=== PATIENT | male | born 1960 | race Caucasian/White ===

== ENCOUNTER 2019-01-01 10:56 | Emergency (ER) | payer BC ==
[~2019-01-01] VITALS: Ht 180.3 cm; Wt 99.8 kg
[2019-01-01] MEDS ORDERED: NEOMYCIN/POLYMYX/BACITR OINT 0.9 GM PKT TOP ONE (11:15)
[2019-01-01] MEDS ORDERED: DIPHTH/TETANUS/ACEL. PERTUSSIS 0.5 ML SYR IM ONE (11:15)
[2019-01-01] MEDS ORDERED: LIDOCAINE HCL 1% LOCAL INJ 20 ML VIAL INJ NR (11:15)
[2019-01-01] MEDS ORDERED: HYDROCODONE/APAP 5MG-325MG TAB PO NR (11:15)
--- NOTE | 2019-01-01 12:40 | Diagnostic Imaging Report ---
EXAM: Cervical spine radiographs-6 views INDICATION: Status post fall. COMPARISON: None FINDINGS: C1-C6 are visualized on lateral view. Subsequently swimmer's view was obtained with visualization of C7. BONES: The alignment is within normal limits. No acute displaced fractures. Vertebral body heights are preserved. DISCS: Mild degenerative disc changes, most pronounced at C5-C6 and C6-C7. Mild bony neural foraminal stenosis at C6-C7. JOINTS: Mild facet degenerative changes. SOFT TISSUES: Unremarkable IMPRESSION: No acute radiographic abnormality. If there is clinical concern for fracture, CT would be more sensitive for evaluation. Signed by: Dr. Teri Martinez MD on 01/01/2019 12:37 PM
== END 2019-01-01 13:42 | disposition home or self-care (01) ==
LOC: ER 10:56
DX: S01.81XA Laceration without foreign body of other part of head, initial encounter (principal); S16.1XXA Strain of muscle, fascia and tendon at neck level, initial encounter; S80.811A Abrasion, right lower leg, initial encounter; S80.212A Abrasion, left knee, initial encounter; W01.198A Fall on same level from slipping, tripping and stumbling with subsequent striking against other object, initial encounter; Y92.007 Garden or yard of unspecified non-institutional (private) residence as the place of occurrence of the external cause
CPT/HCPCS: 12013; 72050; 93005; 99284; J2001

== ENCOUNTER 2019-05-25 02:56 | Observation (INO) | payer BC ==
[~2019-05-25] VITALS: Ht 180.3 cm; Wt 109.8 kg
--- OUTSIDE RECORDS SUMMARY | 2019-05-25 02:58 | XMS REPORT ---
Author Author [facility] Address Unknown Phone Unavailable Care Team Providers Care Lighter Name Role Phone Keenan DIXON Unavailable Unavailable Problems This patient has no known problems. Allergies, Adverse Reactions, Alerts This patient has no known allergies or adverse reactions. Medications This patient has no known medications. Results Test Description Test Time Test Comments Text Results Atomic Results Result Comments CERVICAL SPINE 4 OR 5 VIEWS 2019-01-01 12:30:00 [place] [id number] Patient Name: LENCHO JUNE MR #: [id number] : 1960 Age/Sex: 58/M Req #: [id number] Adm Physician: Ordered by: ZOIE CARRILLO NP Report #: [id number] Location: ER Room/Bed: Procedure: [id number] DX/CERVICAL SPINE 4 OR 5 VIEWS Exam Date: 01/01/19 Exam Time: 1205 REPORT STATUS: Signed EXAM: Cervical spine radiographs-6 views IN DICATION: Status post fall. COMPARISON: None FINDINGS: C1-C6 are visualized on lateral view. Subsequently swimmer's view was obtained with visualization of C7. BONES: The alignment is within normal limits. No acute displaced fractures. Vertebral body heights are preserved. DISCS: Mild degenerative disc changes, most pronounced at C5-C6 and C6-C7. Mild bony neural foraminal stenosis at C6-C7. JOINTS: Mild facet degenerative changes. SOFT TISSUES: Unremarkable IMPRESSION: No acute radiographic abnormality. If there is clinical concern for fracture, CT would be more sensitive for evaluation. Signed by: Dr. Valdemar Ford MD on 01/01/2019 12:37 PM Dictated By: VALDEMAR FORD MD [id number] Transcribed By: JAMI on 01/01/19 1237 COPY TO: ZOIE CARRILLO NP
[2019-05-25] MEDS ORDERED: ONDANSETRON HCL INJ 2MG/ML 2ML 2 MG/ML VIAL IV STA ×2 (03:05→05:53)
[2019-05-25] MEDS ORDERED: SODIUM CHLORIDE 0.9% 1000ML 1,000 ML ONE (03:11)
[2019-05-25 03:14] LABS: BASOPHILS # (AUTO) 0.1 (0.0-0.1); BASOPHILS % 0.4 % (0.0-1.0); EOSINOPHILS # (AUTO) 0.1 (0.0-0.4); EOSINOPHILS % 0.3 % (0.0-6.0); HEMATOCRIT 54.1 % (38.2-49.6); HEMOGLOBIN 18.2 g/dL (14.0-18.0); LYMPHOCYTES # (AUTO) 1.3 (1.0-3.2); LYMPHOCYTES % 6.3 % (18.0-39.1); MEAN CORPUSCULAR HEMOGLOBIN 28.8 pg (28-32); MEAN CORPUSCULAR HGB CONC 33.6 g/dL (31-35); MEAN CORPUSCULAR VOLUME 85.6 fL (81-99); MONOCYTES # (AUTO) 1.7 (0.2-0.8); NEUTROPHILS # (AUTO) 17.8 (2.1-6.9); NEUTROPHILS % 84.6 % (38.7-80.0); PLATELET COUNT 296 x10e3/uL (140-360); RED BLOOD COUNT 6.32 x10e6/uL (4.3-5.7); RED CELL DISTRIBUTION WIDTH 13.5 % (11.7-14.4)
[2019-05-25] MEDS ORDERED: SODIUM CHLORIDE 0.9% 1000ML 1,000 ML IV ONE ×2 (03:15)
--- NOTE | 2019-05-25 03:21 | NUR ---
PT GIVEN URINAL, INST ON NEED FOR UA.
[2019-05-25 03:24] LABS: AMYLASE 50 U/L (25-125); LIPASE 8 U/L (8-78)
[2019-05-25 03:33] LABS: ALBUMIN 4.4 g/dL (3.5-5.0); ALBUMIN/GLOBULIN RATIO 1.2 (0.8-2.0); ANION GAP 21.4 mmol/L (8-16); CALCIUM 10.8 mg/dL (8.4-10.2); CREATININE, SERUM 1.51 mg/dL (0.72-1.25); POTASSIUM 4.4 mmol/L (3.5-5.1)
[2019-05-25 03:40] LABS: CREATINE KINASE MB 2.8 ng/mL (0-5.0)
[2019-05-25] MEDS: SODIUM CHLORIDE 0.9% 1000ML 1,000 ML IV SCH ×3 (04:39→20:46)
[2019-05-25 05:11] LABS: BILIRUBIN,URINE NEGATIVE (NEGATIVE); CLARITY,URINE CLEAR (CLEAR); COLOR,URINE YELLOW (YELLOW); KETONES,URINE NEGATIVE (NEGATIVE); LEUKOCYTE ESTERASE ,URINE NEGATIVE (NEGATIVE); NITRITE,URINE NEGATIVE (NEGATIVE); PROTEIN,URINE DIPSTICK TRACE (NEGATIVE); URINE UROBILINOGEN 0.2 mg/dL (0.2 - 1)
[2019-05-25 05:26] LABS: BACTERIA,URINE RARE /HPF; EPITHELIAL CELLS,URINE FEW /LPF; RBC,URINE 0-5 /HPF (0-5); WBC,URINE (MAN) 0-5 /HPF (0-5)
--- NOTE | 2019-05-25 05:56 | NUR ---
PT REPORTS FEELS LIKE HE NEEDS TO VOMIT. MD AWARE, MEDICATED PER ORDERS
--- NOTE | 2019-05-25 06:05 | NUR ---
REPEAT CBC COLLECTED AND SENT
--- NOTE | 2019-05-25 06:07 | Diagnostic Imaging Report ---
EXAM: CT Abdomen and Pelvis WITH contrast INDICATION: Nausea vomiting leukocytosis COMPARISON: None TECHNIQUE: Abdomen and pelvis were scanned utilizing a multidetector helical scanner from the lung base to the pubic symphysis after administration of IV contrast. Coronal and sagittal reformations were obtained. Routine protocol was performed. Scan was performed when during portal venous phase. IV CONTRAST: 100 mL of Isovue 370 ORAL CONTRAST: None COMPLICATIONS: None RADIATION DOSE: Total DLP: 803 mGy*cm Estimated effective dose: (DLP x 0.015 x size factor) mSv CTDIvol has been reviewed. It is below the limits set by the Radiation Protocol Committee (RPC). Dose modulation, iterative reconstruction, and/or weight based adjustment of the mA/kV was utilized to reduce the radiation dose to as low as reasonably achievable. FINDINGS: LINES and TUBES: None. LOWER THORAX: Calcified granuloma in the right lower lung HEPATOBILIARY: Decreased hepatic attenuation. No focal hepatic lesions. No biliary ductal dilation. GALLBLADDER: No radio-opaque stones or sludge. No wall thickening. SPLEEN: No splenomegaly. PANCREAS: No focal masses or ductal dilatation. ADRENALS: No adrenal nodules KIDNEYS/URETERS: Kidneys enhance symmetrically. No hydronephrosis. No cystic or solid mass lesions. No stones. GI TRACT: No abnormal distention, wall thickening, or evidence of bowel obstruction. Multiple fluid-filled loops of nondilated small bowel. Appendix is not clearly identified. There is however no fat stranding or adenopathy in the right lower quadrant to suggest appendicitis. PELVIC ORGANS/BLADDER: Unremarkable. LYMPH NODES: No lymphadenopathy. Scattered slightly prominent mesenteric lymph nodes. VESSELS: Unremarkable. PERITONEUM / RETROPERITONEUM: No free air or fluid. BONES: Unremarkable. SOFT TISSUES: Unremarkable. IMPRESSION: 1. Findings suggestive of enteritis. 2. Hepatic steatosis. Signed by: Dave Rodriguez DO on 05/25/2019 6:04 AM
--- NOTE | 2019-05-25 06:08 | Diagnostic Imaging Report ---
EXAM: Abdomen Radiograph 2 View(s), supine and upright INDICATION: Vomiting COMPARISON: None FINDINGS: No abnormalities in the lower chest. No lines or tubes. Normal volume of stool in the colon. Small volume of gas within the gastric lumen. Paucity of bowel gas. No abnormal abdominal calcifications.. No abnormal soft tissue masses. No pneumoperitoneum. No acute osseous abnormality. IMPRESSION: No acute abdominal radiographic abnormality. Signed by: Dave Rodriguez DO on 05/25/2019 6:05 AM
[2019-05-25 06:11] LABS: BASOPHILS % 0.2 % (0.0-1.0); EOSINOPHILS % 0.2 % (0.0-6.0); HEMATOCRIT 51.6 % (38.2-49.6); HEMOGLOBIN 17.2 g/dL (14.0-18.0); LYMPHOCYTES # (AUTO) 0.4 (1.0-3.2); LYMPHOCYTES % 2.2 % (18.0-39.1); MEAN CORPUSCULAR HEMOGLOBIN 28.9 pg (28-32); MEAN CORPUSCULAR HGB CONC 33.3 g/dL (31-35); MEAN CORPUSCULAR VOLUME 86.7 fL (81-99); MONOCYTES % 5.4 % (4.4-11.3); NEUTROPHILS # (AUTO) 16.9 (2.1-6.9); NEUTROPHILS % 91.4 % (38.7-80.0); PLATELET COUNT 224 x10e3/uL (140-360); RED BLOOD COUNT 5.95 x10e6/uL (4.3-5.7); RED CELL DISTRIBUTION WIDTH 13.4 % (11.7-14.4)
--- NOTE | 2019-05-25 06:39 | NUR ---
PT HAS GONE TO RESTROOM X2 WITH LOOSE STOOLS, ERP AWARE. 3RD LITER OPENED UP TO BOLUS. AWAKE ALERT SKIN W/D RESP NONLAB, NAD NOTED.
--- NOTE | 2019-05-25 06:48 | NUR ---
REPORT TO CRISELDA SIDDIQI
--- NOTE | 2019-05-25 06:49 | NUR ---
received report from off going nurse. patient in room in bed, awake and alert. no s/s of acute distress. resp even and nonlabored. pending room assignment for admission. bed down call light in reach, will continue to monitor.
[2019-05-25] MEDS ORDERED: ONDANSETRON HCL INJ 2MG/ML 2ML 2 MG/ML VIAL IV PRN (07:15)
[2019-05-25] MEDS ORDERED: METRONIDAZOLE 500MG/NS 100ML 100 ML IV SCH (07:30)
[2019-05-25] MEDS: LEVOFLOXACIN 500MG/D5W 100ML 100 ML IV SCH (07:41)
[2019-05-25 08:13] LABS: LYMPHOCYTES % (MANUAL) 3 % (19-48); MONOCYTES % (MANUAL) 1 % (3.4-9.0); NEUTROPHILS % (MANUAL) 96 % (40-74)
[2019-05-25 08:14] LABS: PLATELET ESTIMATE ADEQUATE; RBC MORPHOLOGY COMMENT NORMAL
--- NOTE | 2019-05-25 11:58 | NUR ---
report received from ER at this time. patient alert and oriented with significant other at bedside. patient to arrive to unit via stretcher.
--- NOTE | 2019-05-25 12:06 | NUR ---
patient arrived to unit, alert and oriented and in no distress with significant other at bedside. call reilly within reach and bed in lowest position.
[2019-05-25 12:16] VITALS: BP 139/73
[2019-05-25 12:24] VITALS: BP 139/73
[2019-05-25 12:30] VITALS: BP 139/73
[2019-05-25] MEDS: METRONIDAZOLE 500MG/NS 100ML 100 ML IV SCH ×2 (14:30→20:41)
[2019-05-25 16:03] VITALS: BP 131/73
--- NOTE | 2019-05-25 18:55 | NUR ---
walking rounds done at this time, patient aware of change and in no distress, with significant other at bedside. call reilly within reach and bed in lowest position.
[2019-05-25 20:00] VITALS: BP 138/58
[2019-05-25 21:00] VITALS: BP 138/58
[2019-05-26] VITALS: BP 133/69
[2019-05-26] MEDS: METRONIDAZOLE 500MG/NS 100ML 100 ML IV SCH ×2 (02:43→10:41)
[2019-05-26 04:00] VITALS: BP 121/65
[2019-05-26 05:33] LABS: BASOPHILS % 0.1 % (0.0-1.0); EOSINOPHILS % 0.3 % (0.0-6.0); HEMATOCRIT 45.7 % (38.2-49.6); HEMOGLOBIN 14.6 g/dL (14.0-18.0); LYMPHOCYTES % 10.1 % (18.0-39.1); MEAN CORPUSCULAR HEMOGLOBIN 28.3 pg (28-32); MEAN CORPUSCULAR HGB CONC 31.9 g/dL (31-35); MEAN CORPUSCULAR VOLUME 88.7 fL (81-99); MONOCYTES % 10.4 % (4.4-11.3); NEUTROPHILS # (AUTO) 7.7 (2.1-6.9); NEUTROPHILS % 78.7 % (38.7-80.0); PLATELET COUNT 184 x10e3/uL (140-360); RED BLOOD COUNT 5.15 x10e6/uL (4.3-5.7); RED CELL DISTRIBUTION WIDTH 13.7 % (11.7-14.4)
[2019-05-26 05:52] LABS: ALANINE AMINOTRANSFERASE 39 IU/L (0-55); ALBUMIN 3.2 g/dL (3.5-5.0); ALBUMIN/GLOBULIN RATIO 1.2 (0.8-2.0); ALKALINE PHOSPHATASE 51 IU/L (40-150); ANION GAP 10.7 mmol/L (8-16); BLOOD UREA NITROGEN 15 mg/dL (7-26); BUN/CREATININE RATIO 12 (6-25); CALCIUM 8.2 mg/dL (8.4-10.2); CARBON DIOXIDE 23 mmol/L (22-29); CHLORIDE 105 mmol/L (98-107); CREATININE, SERUM 1.22 mg/dL (0.72-1.25); EST GLOMERULAR FILTRATION RATE > 60 ML/MIN (60-); GLUCOSE 111 mg/dL (74-118); POTASSIUM 3.7 mmol/L (3.5-5.1); SODIUM 135 mmol/L (136-145)
[2019-05-26] MEDS ORDERED: ACETAMINOPHEN 325 MG TAB PO PRN (06:00)
[2019-05-26] MEDS: SODIUM CHLORIDE 0.9% 1000ML 1,000 ML IV SCH ×2 (06:12→08:39)
--- NOTE | 2019-05-26 07:19 | NUR ---
REPORT GIVEN TO ONCOMING NURSE, WALKING ROUND DONE.
[2019-05-26 08:00] VITALS: BP 127/78
[2019-05-26] MEDS: LEVOFLOXACIN 500MG/D5W 100ML 100 ML IV SCH (08:39)
[2019-05-26 11:19] VITALS: BP 127/78
[2019-05-26 12:14] VITALS: BP 111/63
[2019-05-26] MEDS ORDERED: FLAGYL250 MG PO (15:02)
[2019-05-26] MEDS ORDERED: LEVAQUIN500 MG PO (15:02)
--- NOTE | 2019-06-04 16:55 | Discharge Summary ---
DISCHARGE DIAGNOSES: 1. Dehydration. 2. Gastroenteritis. 3. Acute renal failure. FOLLOWUP: 1-2 weeks with me. HISTORY OF PRESENT ILLNESS: The patient is a gentleman, who ate out and he felt like he got some food poison and worried and also has significant dehydration from significant diarrhea watery with no blood, where he then presented to the emergency room, where he was clearly seen as to have acute renal failure as well as dehydration, so he was brought in and placed on IV antibiotics, IV fluids, where he made significant improvement each day. At the time of discharge, he felt great. He has had no further diarrhea. He was ambulating well and eating well. His laboratory data returned back to near normal. So, he is discharged home on p.o. medication and follow up in one to two weeks me or return back to the emergency room if he worsens. Please see hospital chart for full details. MD NICK Hargrove/TINY /[id number]
== END 2019-05-26 15:21 | disposition home or self-care (01) ==
LOC: ER 02:56 → ERHOLD 07:13 → IMCU 12:19 → OBSVTOIN 05-26 08:32 → INTOOBSV 05-26 08:32
PROVIDERS: ADMIT Internal Medicine; ATTEND Internal Medicine
DX: A09 Infectious gastroenteritis and colitis, unspecified (principal); E86.0 Dehydration; D72.825 Bandemia; Z82.49 Family history of ischemic heart disease and other diseases of the circulatory system; N17.9 Acute kidney failure, unspecified; E66.9 Obesity, unspecified; Z68.33 Body mass index [BMI] 33.0-33.9, adult
CPT/HCPCS: 36415 ×2; 74019; 74177; 80053 ×2; 81001; 82150; 82550; 82553; 83690; 83735; 84484; 85025 ×2; 93005; 96374; 99284; G0378 ×2; J1956 ×2; J2405; J7030 ×2

== ENCOUNTER → 2020-10-11 | Day surgery (SDC) | payer BC ==
[2020-10-09 11:57] LABS: BASOPHILS % 0.4 % (0.0-1.0); EOSINOPHILS # (AUTO) 0.1 (0.0-0.4); EOSINOPHILS % 0.7 % (0.0-6.0); HEMATOCRIT 49.2 % (38.2-49.6); HEMOGLOBIN 15.9 g/dL (14.0-18.0); LYMPHOCYTES # (AUTO) 1.8 (1.0-3.2); LYMPHOCYTES % 24.2 % (18.0-39.1); MEAN CORPUSCULAR HEMOGLOBIN 28.4 pg (28-32); MEAN CORPUSCULAR HGB CONC 32.3 g/dL (31-35); MONOCYTES # (AUTO) 0.7 (0.2-0.8); MONOCYTES % 9.7 % (4.4-11.3); NEUTROPHILS # (AUTO) 4.7 (2.1-6.9); NEUTROPHILS % 64.6 % (38.7-80.0); PLATELET COUNT 202 x10e3/uL (140-360); RED BLOOD COUNT 5.59 x10e6/uL (4.3-5.7); RED CELL DISTRIBUTION WIDTH 13.2 % (11.7-14.4)
[2020-10-09 12:23] LABS: ANION GAP 14.3 mmol/L (8-16); BLOOD UREA NITROGEN 15 mg/dL (7-26); BUN/CREATININE RATIO 13 (6-25); CARBON DIOXIDE 26 mmol/L (22-29); CHLORIDE 104 mmol/L (98-107); EST GLOMERULAR FILTRATION RATE > 60 ML/MIN (60-); GLUCOSE 99 mg/dL (74-118); POTASSIUM 4.3 mmol/L (3.5-5.1); SODIUM 140 mmol/L (136-145)
[~2020-10-11] MED LIST: ATORVASTATIN CA20 MG PO; B&O 60MG R/S 60 MG SUPP PR ONE; DEXAMETHASONE SOD PHOS INJ 4 MG/ML VIAL ONE; FLAGYL250 MG PO; FLOMAX0.4 MG PO; GENTAMICIN 80MG/NS 100 ML 200 ML IV ONE; IOPAMIDOL 300MG/ML 50ML INFUS..BTL IV ONE; LEVAQUIN500 MG PO; LIDOCAINE HCL 2% JELLY 5 ML TUBE ONE; LIDOCAINE HCL 2% LOCAL INJ 5 ML SDV VIAL INJ ONE; ONDANSETRON HCL INJ 2MG/ML 2ML 2 MG/ML VIAL ONE; PIPER-TAZ 3.375 GM 50 ML ONE; PROPOFOL IV EMULSION 10 MG/ML 20 ML VIAL ONE; SEVOFLURANE INHAL SOLN 250 ML PEN BTL ONE
[2020-10-11 13:30] VITALS: BP 126/82
== END | disposition home or self-care (01) ==
LOC: OR 08:08
PROVIDERS: ATTEND Urology
DX: C61 Malignant neoplasm of prostate (principal); N35.912 Unspecified bulbous urethral stricture, male; N32.89 Other specified disorders of bladder; N40.0 Benign prostatic hyperplasia without lower urinary tract symptoms; Z01.810 Encounter for preprocedural cardiovascular examination; Z01.812 Encounter for preprocedural laboratory examination; Z20.822 Contact with and (suspected) exposure to COVID-19; Z86.16 Personal history of COVID-19
CPT/HCPCS: 36415; 52281; 55700; 74420; 76872; 76998; 80048; 85025; 88305; 93005; C1758; J1100; J1580; J2001 ×2; J2405; J2543; J2704; Q9967; U0002

== ENCOUNTER → 2021-03-06 | Outpatient (CLI) | payer BC ==
[~2021-03-06] MED LIST changes: -B&O 60MG R/S 60 MG SUPP PR ONE; -DEXAMETHASONE SOD PHOS INJ 4 MG/ML VIAL ONE; -GENTAMICIN 80MG/NS 100 ML 200 ML IV ONE; -IOPAMIDOL 300MG/ML 50ML INFUS..BTL IV ONE; +IOPAMIDOL 370 MG/ML 200 ML INFUS..BTL INJ ONE; -LIDOCAINE HCL 2% JELLY 5 ML TUBE ONE; -LIDOCAINE HCL 2% LOCAL INJ 5 ML SDV VIAL INJ ONE; -ONDANSETRON HCL INJ 2MG/ML 2ML 2 MG/ML VIAL ONE; -PIPER-TAZ 3.375 GM 50 ML ONE; -PROPOFOL IV EMULSION 10 MG/ML 20 ML VIAL ONE; -SEVOFLURANE INHAL SOLN 250 ML PEN BTL ONE; +SODIUM CHLORIDE 0.9% 50ML 50 ML ONE
== END ==
LOC: NM 07:30
PROVIDERS: ATTEND Urology
DX: C61 Malignant neoplasm of prostate (principal)
CPT/HCPCS: 71046; 74177; 78306; A9503; Q9967; A9570

== ENCOUNTER 2021-09-01 20:45 | Emergency (ER) | payer BC ==
[~2021-09-01] VITALS: Ht 180.3 cm; Wt 111.1 kg
[~2021-09-01 20:45] MED LIST changes: -IOPAMIDOL 370 MG/ML 200 ML INFUS..BTL INJ ONE; -SODIUM CHLORIDE 0.9% 50ML 50 ML ONE
== END 2021-09-01 21:51 | disposition home or self-care (01) ==
LOC: ER 21:33
DX: R03.0 Elevated blood-pressure reading, without diagnosis of hypertension (principal)
CPT/HCPCS: 99282

== ENCOUNTER 2025-03-17 16:22 | Emergency (ER) | payer BC ==
[~2025-03-17] VITALS: Ht 180.3 cm; Wt 111.1 kg
[2025-03-17 16:37] VITALS: TEMP 98.4
[2025-03-17 17:15] VITALS: PULSE 65; RESP 16; O2SAT 95
== END 2025-03-17 17:16 | disposition home or self-care (01) ==
LOC: ER 16:58
DX: R60.9 Edema, unspecified (principal); I10 Essential (primary) hypertension; Z85.46 Personal history of malignant neoplasm of prostate
CPT/HCPCS: 36415; 82948; 99282